=== PATIENT | female | born 1950 | race American Indian/Alaskan Native ===

== ENCOUNTER 2019-05-01 06:57 | Day surgery (SDC) | payer MEDICARE ==
[~2019-05-01 06:57] MED LIST: TETRACAINE 0.5% OS PRN
--- NOTE | 2019-05-01 07:59 | Anesthesia Day of Surgery ---
Anesthesia Day of Surgery - Day of Surgery Patient Examined: Yes Patient H&P Reviewed: Yes Patient is NPO: Yes
--- NOTE | 2019-05-01 07:59 | Anesthesia Consultation ---
Anesthesia Consult and Med Hx Date of service: 05/01/19 - Airway Anesthetic Teeth Evaluation: Good ROM Head & Neck: Adequate Mental/Hyoid Distance: Adequate Mallampati Class: Class III Intubation Access Assessment: Possibly Difficult - Pulmonary Exam CTA: Yes - Cardiac Exam Cardiac Exam: RRR - Pre-Operative Health Status ASA Pre-Surgery Classification: ASA2 Proposed Anesthetic Plan: MAC - Pulmonary Hx Smoking: No Hx Respiratory Symptoms: No Hx Sleep Apnea: No (neg sleep study) - Cardiovascular System Hx Hypertension: Yes Hx Heart Attack/AMI: No Hx Percutaneous Transluminal Coronary Angioplasty (PTCA): No - Central Nervous System CVA: No - Gastrointestinal Hx Gastroesophageal Reflux Disease: Yes (well controlled s/p Les) - Endocrine Hx Renal Disease: No Hx Liver Disease: No Hx Non-Insulin Dependent Diabetes: Yes Hx Thyroid Disease: No - Other Systems Hx Obesity: Yes - Additional Comments Anesthesia Medical History Comments: No hx anesthetic complications.
[2019-05-01] MEDS: MYDRIACYL OS SCH ×3 (08:10→08:20)
[2019-05-01] MEDS: AK-Dilate OS SCH ×3 (08:10→08:20)
[2019-05-01] MEDS: VIGAMOX OS SCH ×3 (08:10→08:20)
[2019-05-01] MEDS ORDERED: VERSED ONE (09:08)
[2019-05-01] MEDS ORDERED: SUBLIMAZE ONE (09:09)
[2019-05-01] MEDS ORDERED: DIPRIVAN 10 MG/ML IV ONE (09:10)
[2019-05-01] MEDS ORDERED: DIAMOX PO NR (09:22)
--- NOTE | 2019-05-01 09:25 | Operative Report ---
Operative Report Operative Report: PATIENT'S NAME: DATE OF : DATE OF SURGERY: 05/01/2019 PREOPERATIVE DIAGNOSIS: Cataract and Astigmatism left Eye POSTOPERATIVE DIAGNOSIS: Same OPERATIVE PROCEDURE: Phacoemulsification with intraocular lens implantation, left eye Toric SURGEON: Charline Shah M.D. LENS: [id number] 20.5 at 155 ANESTHESIA: Monitored anesthesia care in combination with topical and intracameral anesthesia because of the established specific risk of reflux, arrhythmias, or anxiety attacks associated with ocular manipulation, as well as the difficulty of the functional director to manage such potentially catastrophic events while simultaneously attempting to complete the surgical procedure and was deemed necessary for the patient's safety to have a Nurse Astronomy Instructor present during the procedure whenever possible. A Nurse Astronomy Instructor was utilized to regulate the intravenous sedation of the patient so the patient was cooperative yet not asleep in order for the patient to successfully maintain fixation of the eye on the operating light of the microscope. COMPLICATIONS: [No surgical complications.] No blood loss. ALLERGIES: Amoxicillin, clarithromycin, clavulanic acid, clindamycin PROGNOSIS: Excellent INDICATIONS FOR SURGERY: The patient is undergoing surgery in the hopes of eliminating or improving these visual difficulties. PROCEDURE: After arriving at the surgery center, the patient was given topical anesthetic and dilating drops, as noted in the record. The patient was then t aken into the operating room and given more anesthetic drops. The eyelids, lashes, and lid margins were scrubbed with Betadine solution, and the patient was draped. The Nurse Astronomy Instructor administered IV sedation and monitored the patient during the procedure. A speculum was placed between the eyelids, and the patient was asked to fixate on the light of the microscope. The patient has been noted to have pre-existing astigmatism as well as a concern to be left with as little astigmatism as possible after surgery in order to improve their uncorrected visual acuity after surgery.~ They have, therefore, elected to have our option for astigmatism management and have signed a waiver acknowledging their understanding of the process, its benefits and risks, and wish to proceed with this option. Based on the preoperative evaluation of the topography of their corneal mapping of astigmatism, the wound orientation, wound size, and use of a relaxing incision have been utilized to minimize their post operative astigmatism. In some cases a toric, or astigmatic, intraocular lens implant may be used in conjunction with a relaxing incision or in place of one. When an astigmatic lens is used, preoperative evaluation of the topography with careful planning of the lens position and power of the astigmatic correction by lens are all done. ~The calculation of the lens power for the astigmatic c orrection and the lens orientation of the astigmatic lens is performed separately and subsequently from the normal lens power calculation for the standard cataract lens power needed for standard surgery without astigmatism management. ~In fact, the toric lens power calculation can not be done until the standard lens power calculations are performed and finished - so that is a totally separate part of the preoperative planning. The eye was then fixated with a 0.12 and a stab incision was made in the peripheral clear cornea into the anterior chamber. Viscoelastic was next used to fill the anterior chamber. The eye was once again fixated with the round estrada and a keratome was used make an incision in clear cornea peripherally on my right hand side temporally. Hydrodissection was carried out utilizing a U-shaped cannula and balanced salt solution to delineate the cortical material from the capsule and the nucleus from the cortical material. The phaco tip was introduced into the eye and used to remove the anterior cortical material in the area of the capsulotomy. Then the phaco tip was buried into the nucleus, and a chopping instrument was introduced into the eye and used to provide countertraction in the nucleus between this instrument and the phaco tip fracturing the nucleus. This procedure was repeated multiple times, providing multiple small segments of the lens, and then the phaco tip was used to remove each of these segments. An I/A tip was then used to remove the remaining cortex. An one-piece, acrylic intraocular lens was then placed into an inserting cartridge. The tip of the inserting cartridge was introduced into the keratome incision and into the anterior chamber. The implant was gently advanced through the cartridge and into the eye, where it unfolded, and both haptics were placed in the capsular bag, where it centered nicely and appeared to be well fixated. Prior to prepping the patient, the patient was asked to sit up on the operative bed and look across the room. ~Utilizing a special marking instrument, the cardinal meridians at 3:00, 6:00, and 9:00 were marked with Gentian josie.~ These goff were used later in the surgery as reference goff to identify the proper location of the axis for the placement of the astigmatic, or toric, intraocular lens.~ The axis was marked with Gentian josie prior to entering the eye.~ After placement of the intraocular lens implant and removal of the viscoelastic from both the capsular bag and anterior chamber, the lens was positioned so it was perfectly aligned along this axis. The orientation was rechecked once the wounds were hydrated and the integrity of the wounds was verified. After placement of the intraocular lens, the I~and~A handpiece was placed back into the eye and used to remove the viscoelastic, including viscoelastic that was behind the optic of the intraocular lens. The anterior chamber was then filled with balanced salt solution, and hydration of the wound was used to cause swelling of the wound and more appropriate watertight closure. When the wound was found to be firm, the patient was asked to comment on how bright the light was. If there was no light perception at all or if the light was substantially dimmer than during the rest of the surgery, the amount of fluid in the eye was decompressed to lower the intraocular pressure until the patient could see the bright light again. This was done to avoid any damage or decreased blood flow to the optic nerve. MEDICATIONS APPLIED AT END OF SURGERY: One drop vigamox and Pred Forte The patient was given a shield to wear at night and was instructed not to rub or push on the eye. DISCHARGE SUMMARY: The patient was released in stable condition. The patient and those with the patient were given a written sheet of postoperative instructions and counseling on any abnormal laboratory studies. The patient is to see us tomorrow for follow-up in the office and is to call immediately for any difficulties. Charline Shah M.D. Date
--- NOTE | 2019-05-01 09:26 | Short Stay Summary ---
Short Stay Documentation Date of service: 05/01/19 - History H&P: obtained from office - Allergies and Medications Current Medications: Allergies amoxicillin [From Augmentin] Adverse Reaction (Intermediate, Verified 04/29/19 11:54) Diarrhea CAUSES CRAMPING AND DIARRHEA clarithromycin [From Biaxin] Adverse Reaction (Intermediate, Verified 04/29/19 11:54) Diarrhea CAUSES CRAMPING AND DIARRHEA clavulanic acid [From Augmentin] Adverse Reaction (Intermediate, Verified 04/29/19 11:54) Diarrhea CAUSES CRAMPING AND DIARRHEA clindamycin Adverse Reaction (Intermediate, Verified 04/29/19 11:54) Diarrhea CAUSES CRAMPING AND DIARRHEA lisinopril Adverse Reaction (Intermediate, Verified 04/29/19 11:54) Unknown CAUSES HICCUPS vancomycin Adverse Reaction (Intermediate, Verified 04/29/19 11:54) Diarrhea CAUSES CRAMPING AND DIARRHEA Home Medications Medication Instructions Recorded Confirmed Last Taken Type Adult Probiotic 1 cap PO DAILY 04/29/19 04/29/19 Unknown History Cymbalta 30 mg PO DAILY 04/29/19 04/29/19 Unknown History Dyazide 37.5-25 Capsule 37.5 mg PO DAILY 04/29/19 04/29/19 Unknown History Lipitor 40 mg PO QHS 04/29/19 04/29/19 Unknown History Vitamin D (Nf) 1 tab PO DAILY 04/29/19 04/29/19 Unknown History Xyzal 5 mg PO DAILY 04/29/19 04/29/19 Unknown History metFORMIN 500 mg PO DAILY 04/29/19 04/29/19 Unknown History Active Medications Acetazolamide (Diamox) 500 mg PO ONCE ONE Stop: 05/01/19 09:23 Moxifloxacin HCl (Vigamox) 1 drops OS Q5M [facility] Stop: 05/01/19 23:59 Last Admin: 05/01/19 08:20 Dose: 1 drops Documented by: Phenylephrine HCl (Ak-Dilate) 1 drops OS Q5M [facility] Stop: 05/01/19 23:59 Last Admin: 05/01/19 08:20 Dose: 1 drops Documented by: Prednisolone Acetate (Pred Forte 1%) 1 drops OS ONCE NR Tetracaine HCl (Tetracaine 0.5%) 1 drops OS Q5M PRN PRN Reason: Anesthesia Stop: 05/01/19 23:59 Last Admin: 05/01/19 08:10 Dose: 1 drops Documented by: Tropicamide (Mydriacyl) 1 drops OS Q5M [facility] Stop: 05/01/19 23:59 Last Admin: 05/01/19 08:20 Dose: 1 drops Documented by: - Brief post op/procedure progress note Date of procedure: 05/01/19 Pre-op diagnosis: cataract and astigmatism left eye Post-op diagnosis: same Procedure: Phacoemulsification with toric lens insertion left eye Anesthesia: MAC, local Surgeon: JUSTIN FRYE Estimated blood loss: none Pathology: none Condition: stable - Disposition Condition at discharge: Good Disposition: DC-01 TO HOME OR SELFCARE - Discharge Diagnoses (1) Cortical age-related cataract of left eye Status: Resolved (2) Astigmatism of left eye Status: Resolved Qualifiers: Astigmatism type: regular Qualified Code(s): H52.222 - Regular astigmatism, left eye Short Stay Discharge Plan Follow up with: SIMÓN OBRIEN MD [Primary Care Provider] - 7 Days
[2019-05-01] MEDS ORDERED: NACL P/F VIAL (10 ML) 10 ML ONE (09:35)
[2019-05-01] MEDS ORDERED: PRED FORTE 1% OS NR (10:00)
[2019-05-01 10:31] VITALS: BP 102/66
[2019-05-01] MEDS ORDERED: XYLOCAINE MPF 2% ONE (11:00)
--- NOTE | 2019-05-01 12:29 | Post Anesthesia Evaluation ---
- Post Anesthesia Evaluation Patient Participated: Yes Airway Patent: Yes Stable Respiratory Function: Yes Nausea/Vomiting: No Temp > 96.8F: Yes Pain Manageable: Yes Adequeate Hydration: Yes Anesthesia Complications: No
== END 2019-05-01 10:20 | disposition home or self-care (01) ==
LOC: OR 06:57
DX: E11.36 Type 2 diabetes mellitus with diabetic cataract (principal); H25.012 Cortical age-related cataract, left eye; H52.202 Unspecified astigmatism, left eye; H40.9 Unspecified glaucoma; E11.39 Type 2 diabetes mellitus with other diabetic ophthalmic complication; E78.00 Pure hypercholesterolemia, unspecified; I10 Essential (primary) hypertension; K21.9 Gastro-esophageal reflux disease without esophagitis; E66.9 Obesity, unspecified; F32.9 Major depressive disorder, single episode, unspecified; Z79.899 Other long term (current) drug therapy; Z88.6 Allergy status to analgesic agent; Z79.84 Long term (current) use of oral hypoglycemic drugs; Z98.41 Cataract extraction status, right eye; Z68.32 Body mass index [BMI] 32.0-32.9, adult; Z87.440 Personal history of urinary (tract) infections; Z98.890 Other specified postprocedural states; Z88.8 Allergy status to other drugs, medicaments and biological substances
CPT/HCPCS: 66984; 82962; J2250; J2704; J3010; V2630